=== PATIENT | male | born 1985 | race Hispanic/Latino ===

== ENCOUNTER 2020-10-03 09:09 | Emergency (ER) | payer SELFPAY ==
[~2020-10-03] VITALS: Ht 180.3 cm; Wt 100.0 kg
[2020-10-03] MEDS ORDERED: AMOX/K CLAV875 M1 PO (11:15)
[2020-10-03] MEDS ORDERED: CORTISPORIN OTI10 M2 AS (11:15)
[2020-10-03 12:11] VITALS: BP 123/64
== END 2020-10-03 12:11 | disposition home or self-care (01) | DRG 153 ==
LOC: ED 09:09
DX: H66.92 Otitis media, unspecified, left ear (principal); H60.92 Unspecified otitis externa, left ear

== ENCOUNTER 2021-09-01 15:55 | Emergency (ER) | payer SELFPAY ==
[~2021-09-01] VITALS: Ht 180.3 cm; Wt 90.0 kg
[~2021-09-01 15:55] MED LIST: AMOX/K CLAV875 M1 PO; CORTISPORIN OTI10 M2 AS
[2021-09-01 17:33] LABS: HEMATOCRIT 44.5 % (39.0-50.0); HEMOGLOBIN 14.4 g/dl (14.0-18.0); IMMATURE GRANULOCYTES 0.4 % (0.0-5.0); MEAN CORPUSCULAR HGB 26.9 pG CALC (26.0-32.0); MEAN CORPUSCULAR HGB CONC 32.4 g/dL CAL (32.0-36.0); NEUT# 6.86 thou/uL (1.82-7.42); RED BLOOD COUNT 5.36 mill/uL (4.70-6.10); RED CELL DISTRI WIDTH 13.1 % (11.5-15.5)
[2021-09-01 17:34] LABS: URINE BILIRUBIN - DIPSTICK NEGATIVE (NEGATIVE); URINE BLOOD DIPSTICK TRACE-INTACT (NEGATIVE); URINE COLOR YELLOW; URINE GLUCOSE - DIPSTICK NEGATIVE (NEGATIVE); URINE KETONE NEGATIVE (NEGATIVE); URINE LEUK ESTERASE NEGATIVE (NEGATIVE); URINE PROTEIN - DIPSTICK NEGATIVE (NEG-TRACE); URINE SPECIFIC GRAVITY >=1.030; URINE UROBILINOGEN - DIPSTICK 0.2 E.U./dL (0.2)
[2021-09-01 17:36] LABS: URINE NITRITE - DIPSTICK NEGATIVE (Negative)
[2021-09-01 17:45] LABS: ALBUMIN 4.6 g/dL (3.2-5.0); ALKALINE PHOSPHATASE 63 u/l (38-126); ANION GAP 13 (6-22 (CALC)); BILIRUBIN, TOTAL 0.4 mg/dL (0.0-1.4); BUN 20 mg/dL (9-20); BUN/CREATININE RATIO 29 (12-20 (CALC)); CARBON DIOXIDE 30 mmol/l (22-30); CHLORIDE 103 mmol/l (95-108); CREATININE 0.7 mg/dL (0.7-1.3); GFR > 60 ML/MIN (>=60 (CALC)); GFR FOR AFR.AMER. > 60 ML/MIN (>=60 (CALC)); POTASSIUM 4.7 mmol/l (3.5-5.1); SGOT/AST 37 u/l (17-59); SODIUM 141 mmol/l (137-146); TOTAL PROTEIN 7.9 g/dL (6.3-8.2)
[2021-09-01 18:30] VITALS: BP 122/67
== END 2021-09-01 18:30 | disposition home or self-care (01) | DRG 103 ==
LOC: ED 15:55
DX: R51.9 Headache, unspecified (principal)

== ENCOUNTER 2022-04-10 16:50 | Emergency (ER) | payer SELFPAY ==
[2022-04-10] VITALS (14 sets, daily range): BP systolic 104–144; BP diastolic 61–117
[~2022-04-10] VITALS: Ht 180.3 cm; Wt 90.9 kg
[2022-04-10 18:03] LABS: HEMATOCRIT 45.2 % (39.0-50.0); HEMOGLOBIN 14.2 g/dl (14.0-18.0); IMMATURE GRANULOCYTES 0.2 % (0.0-5.0); MEAN CELL VOLUME 84.5 fL CALC (80.0-100.0); MEAN CORPUSCULAR HGB 26.5 pG CALC (26.0-32.0); MEAN CORPUSCULAR HGB CONC 31.4 g/dL CAL (32.0-36.0); NEUT# 17.44 thou/uL (1.82-7.42); RED BLOOD COUNT 5.35 mill/uL (4.70-6.10); RED CELL DISTRI WIDTH 13.2 % (11.5-15.5)
[2022-04-10 18:18] LABS: ALBUMIN 4.7 g/dL (3.2-5.0); ALKALINE PHOSPHATASE 63 u/l (38-126); ANION GAP 17 (6-22 (CALC)); BILIRUBIN, TOTAL 0.4 mg/dL (0.0-1.4); BUN 22 mg/dL (9-20); BUN/CREATININE RATIO 22 (12-20 (CALC)); CARBON DIOXIDE 24 mmol/l (22-30); CHLORIDE 109 mmol/l (95-108); GFR FOR AFR.AMER. > 60 ML/MIN (>=60 (CALC)); GFR OTHER RACES > 60 ML/MIN (>=60 (CALC)); LIPASE 34 u/l (23-300); POTASSIUM 4.8 mmol/l (3.5-5.1); SGOT/AST 34 u/l (17-59); SODIUM 145 mmol/l (137-146); TOTAL PROTEIN 8.2 g/dL (6.3-8.2)
[2022-04-10 20:16] LABS: URINE BILIRUBIN - DIPSTICK NEGATIVE (NEGATIVE); URINE BLOOD DIPSTICK LARGE (NEGATIVE); URINE COLOR YELLOW; URINE GLUCOSE - DIPSTICK NEGATIVE (NEGATIVE); URINE KETONE NEGATIVE (NEGATIVE); URINE LEUK ESTERASE NEGATIVE (NEGATIVE); URINE PH 6.5 (4.5-8.0); URINE PROTEIN - DIPSTICK NEGATIVE (NEG-TRACE); URINE UROBILINOGEN - DIPSTICK 0.2 E.U./dL (0.2)
[2022-04-10 20:17] LABS: URINE NITRITE - DIPSTICK NEGATIVE (Negative)
[2022-04-10 20:25] LABS: URINE SQUAMOUS EPITHELIAL CELL FEW EPI/hpf (0-FEW); URINE WBC 0-2 WBC/hpf (0-5)
[2022-04-11] MEDS ORDERED: HYDROCO/APAP1 TA9 PO (08:25)
[2022-04-11] MEDS ORDERED: TORADOL PO (08:25)
[2022-04-11] MEDS ORDERED: TAMSULOSIN0.4 MG PO (08:25)
== END 2022-04-10 21:10 | disposition home or self-care (01) | DRG 694 ==
LOC: ED 16:50
PROVIDERS: Family Medicine
DX: N13.2 Hydronephrosis with renal and ureteral calculous obstruction (principal)

== ENCOUNTER 2022-04-11 08:12 | Emergency (ER) | payer SELFPAY ==
[~2022-04-11] VITALS: Ht 177.8 cm; Wt 85.8 kg
[2022-04-11 08:18] VITALS: BP 131/64
[2022-04-11] MEDS ORDERED: TAMSULOSIN0.4 MG PO (08:25)
[2022-04-11] MEDS ORDERED: TORADOL PO (08:25)
[2022-04-11] MEDS ORDERED: HYDROCO/APAP1 TA9 PO (08:25)
[2022-04-11 08:31] VITALS: BP 127/72
[2022-04-11 09:00] VITALS: BP 119/78
[2022-04-11 09:30] VITALS: BP 125/72
[2022-04-11 10:00] VITALS: BP 121/72
== END 2022-04-11 10:12 | disposition home or self-care (01) | DRG 694 ==
LOC: ED 08:12
DX: N20.1 Calculus of ureter (principal); Z87.442 Personal history of urinary calculi

== ENCOUNTER 2023-06-15 15:33 | Emergency (ER) | payer SELFPAY ==
[~2023-06-15 15:33] MED LIST changes: +HYDROCO/APAP1 TA9 PO; +TAMSULOSIN0.4 MG PO; +TORADOL PO
== END 2023-06-15 16:55 | disposition left against medical advice (07) | DRG 951 ==
LOC: ED 15:33 → LWOBS 16:54
DX: Z53.21 Procedure and treatment not carried out due to patient leaving prior to being seen by health care provider (principal)

== ENCOUNTER 2024-07-06 09:29 | Emergency (ER) | payer SELFPAY ==
[~2024-07-06] VITALS: Ht 177.8 cm; Wt 81.8 kg
[2024-07-06 09:35] VITALS: BP 114/69
[2024-07-06 09:55] VITALS: BP 119/58
[2024-07-06 10:01] VITALS: BP 119/71
[2024-07-06] MEDS ORDERED: TERBINAFINE1 % EX (10:08)
[2024-07-06 10:16] VITALS: BP 109/62
[2024-07-06 10:19] VITALS: BP 119/71
== END 2024-07-06 10:29 | disposition home or self-care (01) | DRG 607 ==
LOC: ED 09:29
DX: B35.6 Tinea cruris (principal)